=== PATIENT | female | born 1935 | race Caucasian/White ===

== ENCOUNTER 2024-07-03 08:00 | Day surgery (SDC) | payer MEDICARE, OTHER ==
[2024-07-01 13:38] VITALS: BP 108/70
[~2024-07-03] VITALS: Ht 170.2 cm; Wt 58.6 kg
[~2024-07-03 08:00] MED LIST: ASPIRIN81 MG PO; CEFAZOLIN SODIUM 2 GM/20 ML SYR IV SCH; CEPHALEXIN500 MG PO; IBLOOD GLUCOSE TEST STRIP 1 EA TEST VI PRN; K-TAB ER20 MEQ PO; LACTATED RINGER'S 1,000 ML IV SCH; LEVOTHYROXINE75 MCG PO; LIDOCAINE HCL 1% 5 ML SDV INJ ONE; LIPITOR10 MG; MIDAZOLAM HCL 5 MG/5 ML VIAL IV PRN; MIRTAZAPINE15 MG PO; PAROXETINE HCL10 MG; TRAMADOL HCL50 MG PO; TRIAMTERENE-HC1 EAC1 PO; TYLENOL EXTRA500 MG PO; ULTRAM50 MG PO; ZILRETTA32 MG IU; fentaNYL citrate 100 MCG/2 ML VIAL IV PRN
[2024-07-03 08:13] VITALS: BP 143/60
[2024-07-03] MEDS ORDERED: propofoL 200 MG/20 ML VIAL ONE (08:51)
[2024-07-03] MEDS ORDERED: LIDOCAINE HCL 2% 5 ML SDV ONE (08:51)
--- NOTE | 2024-07-03 09:47 | NUR ---
07/03/24 0947 Tahira Leslie 0941-PATIENT ARRIVED TO PACU DROWSY ON RA RR EVEN. PATIENT LAYING LEFT LATERAL REPORTS "IT HURTS" ABDOMEN SOFT. IVF INFUSING. PATIENT REPOSITIONS SELF TO BACK.ORIENTED TO PACU. 0944-PATIENT DENIES PAIN OR NAUSEA. RA 98% RR EVEN. ENCOURAGED TO PASS GAS.
[2024-07-03 10:09] VITALS: BP 154/72
--- NOTE | 2024-07-03 13:01 | OR ---
[facility] [address], [place] [address] Signed DATE OF OPERATION: 07/03/2024 SURGEON: Malinda Nogueira MD PREOPERATIVE DIAGNOSES: 1. Rectal bleeding followed by melena while on Plavix. 2. Diverticulosis. 3. Personal history of colonic polyps in 2013 and 2019 at the ages of 77 and 83. POSTOPERATIVE DIAGNOSES: 1. Minimal diffuse gastritis. 2. Long redundant colon. 3. Tortuous sigmoid colon. 4. Moderate diverticulosis. 5. Moderate internal hemorrhoids. PROCEDURES: 1. EGD with CLOtest and biopsies of the antrum. 2. Colonoscopy without biopsy. ESTIMATED BLOOD LOSS: None. INDICATIONS: Skyler is an 88-year-old female, asked to see me for both upper and lower endoscopy. 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 She also continues to smoke. She is describing some bright red blood with a bowel movement over a month ago and then for a couple of days, she had black stool. She said now it is all gone. She had a colonoscopy in 2013 at the age of 77 while living in [place], [place]. She is quite confident they removed 13 polyps. She also had upper and lower endoscopy in 2019 at the age of 83 [address] Obed Gutierres in [place], [place]. That practice is now closed. She had a tubular adenomatous polyp removed. We do not have any of the records for the upper endoscopy. Skyler tells me there is no family history of colon cancer or polyps. She does not seem to have any upper or lower GI complaints currently. In the office, I gave her a pamphlet on upper and lower endoscopy. We reviewed the nature of the two tests. There is risk including, but not limited to gas bloating, crampy abdominal pain, bleeding, perforation requiring surgery, and missed diagnosis. We also reviewed the written instructions for a bowel prep line by line. We had her hold the Plavix 5 days prior to the procedure. Also because of her advanced age along with her continued smoking and her medical history including the COPD Electronically Signed By: MALINDA NOGUEIRA MD 07/03/24 1301 PATIENT NAME: SKYLER SALGADO OPERATIVE REPORT DATE OF : 39 REPORT #: [id number] PHYSICIAN: MALINDA NOGUEIRA MD PCP: LINDA LE MD REPORT IS CONFIDENTIAL AND NOT TO BE RELEASED WITHOUT AUTHORIZATION [facility] [address], [place] [address] Signed along with the sleep apnea and a head injury with a pelvic fracture back in December 2023, we asked for monitored anesthesia care with propofol infusion. That proved to be a jenkins decision. She did require preoperative blood work and an EKG. She understands an adult person has to take her home afterwards. She had expressed understanding and wished to proceed. DESCRIPTION OF PROCEDURE: Skyler was taken into our endoscopy suite and placed in the supine semi-recumbent position. A bite block was utilized for the case. She was given monitored anesthesia care with propofol infusion per our nurse gantry rigger. The adult gastroscope was introduced and advanced under direct visualization of the camera without difficulty. She had received antibiotics because of her joint replacements. We looked at her vocal cords and they were unremarkable. We did not see either vocal cord move while we were watching. 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 The duodenum and pyloric channel were unremarkable. Stomach had very mild diffuse erythematous changes quite common for people who smoke. There were no ulcerations. We took a biopsy out of the antrum for CLOtest as well as pathologic review. Upon retroflexion of the scope, we could not appreciate a hiatal hernia. The scope was withdrawn up through the area of the GE junction, which was compliant without stricture. There was no gastric or esophageal varices. There was no disruption to her Z-line. There was no Barnes's mucosa. There was no distal esophagitis. The middle and upper esophagus were unremarkable. After this, the gas was suctioned out and the gastroscope removed. Skyler tolerated her upper endoscopy quite well. Skyler was rotated into the left lateral decubitus position. She was maintained on propofol infusion per our nurse gantry rigger. A digital rectal exam was performed. She has good sphincter tone. There were no external hemorrhoids. There were no masses. The adult colonoscope was introduced and advanced very carefully and slowly up through her very tortuous sigmoid colon. It opened up nicely once we got in the left colon. It took a little extra propofol and some abdominal compression to get over into the cecum itself. We found that she has a fairly long redundant colon. Thankfully, her prep was good. We could easily see the appendiceal orifice and the ileocecal valve. The scope was then slowly withdrawn. We found the diverticula in the left side of her colon. They were moderate in size, moderate in number and scattered about. We came back down through the very tortuous sigmoid colon. The rectum itself was unremarkable. Upon retroflexion of the scope, she does have moderate internal hemorrhoid columns. After this, the gas was suctioned out and the colonoscope removed. Skyler tolerated the colonoscopy quite well. RECOMMENDATIONS: I will see Skyler back in my office in 7 to 14 days to review her biopsy results. She would always need monitored anesthesia care in the future. She will resume her Plavix Electronically Signed By: MALINDA NOGUEIRA MD 07/03/24 1301 PATIENT NAME: SKYLER SALGADO OPERATIVE REPORT DATE OF : 39 REPORT #: [id number] PHYSICIAN: MALINDA NOGUEIRA MD PCP: LINDA LE MD REPORT IS CONFIDENTIAL AND NOT TO BE RELEASED WITHOUT AUTHORIZATION [facility] [address], [place] [address] Signed in one week. MD HOMERO Pulliam/MODL /[id number] cc: MD Linda Pulliam MD Copies: MALINDA NOGUEIRA MD ~ Electronically Signed By: MALINDA NOGUEIRA MD 07/03/24 1301 PATIENT NAME: SKYLER SALGADO OPERATIVE REPORT DATE OF : 39 REPORT #: [id number] PHYSICIAN: MALINDA NOGUEIRA MD PCP: LINDA LE MD REPORT IS CONFIDENTIAL AND NOT TO BE RELEASED WITHOUT AUTHORIZATION
--- NOTE | 2024-07-04 14:58 | PATH ---
[facility] [address] [facility] [place], [place] [address] Signed SPECIMEN(S): A ANTRUM BIOPSY SPECIMEN SOURCE: A. ANTRUM BIOPSY v CLINICAL HISTORY: History of melena, mild gastritis FINAL PATHOLOGIC DIAGNOSIS: Stomach, antrum, biopsy: - Gastric antral mucosa with reactive gastropathy - Negative for Helicobacter pylori with HE stains BRP MICROSCOPIC EXAMINATION: Histologic sections of all submitted blocks are examined by light microscopy. These findings, together with the gross examination, support the pathologic diagnosis. GROSS DESCRIPTION: The specimen, labeled and designated "mae Simonrum biopsy," is received in formalin and consists of one song soft tissue fragment, 0.4 cm. Entirely submitted in (A1). VB (under the direct supervision of a pathologist) The Gross Description was prepared using a voice recognition system. The report was reviewed for accuracy; however, sound-alike word errors, addition and/or deletions may occur. If there is any question about this report, please contact Client Services. ADDITIONAL NOTES: Immunohistochemical and/or in situ hybridization studies if performed in this case included appropriate positive controls that reacted as expected. This test was developed and its performance characteristics determined by [facility]. It has not been cleared or approved by the U.S. Food and Drug Administration. The FDA has determined that such clearance or approval is not necessary. This test is used for clinical purposes. It should not be regarded as investigational or for research. [facility] is certified under the Clinical Laboratory Improvement Amendments of 1988 (CLIA) as qualified to perform high complexity clinical PATIENT NAME: SKYLER SIMON PATHOLOGY DATE OF : 39 REPORT #: [id number] PHYSICIAN: ROBIN BURGESS PCP: CARINE LE MD REPORT IS CONFIDENTIAL AND NOT TO BE RELEASED WITHOUT AUTHORIZATION [address] [place], [place] [address] Signed laboratory testing. PERFORMING LABORATORY: Technical [place] [address] (CLIA# [id number]). Professional interpretation was performed by [facility], [address] [place] [address] (CLIA#: [id number]). Diagnostician: Ronnie Tidwell MD Pathologist Electronically Signed 07/04/2024 Copies: ~ PATIENT NAME: SKYLER SIMON PATHOLOGY DATE OF : 39 REPORT #: [id number] PHYSICIAN: ROBIN BURGESS PCP: CARINE LE MD REPORT IS CONFIDENTIAL AND NOT TO BE RELEASED WITHOUT AUTHORIZATION
== END 2024-07-03 10:20 | disposition home or self-care (01) ==
LOC: DS 08:00
PROVIDERS: ATTEND Colon & Rectal Surgery
PROC: 0DB68ZX Excision of Stomach, Via Natural or Artificial Opening Endoscopic, Diagnostic (ICD-10-PCS; principal; 2024-07-03 08:50)
PROC: 0DJD8ZZ Inspection of Lower Intestinal Tract, Via Natural or Artificial Opening Endoscopic (ICD-10-PCS; 2024-07-03 08:50)
DX: K29.70 Gastritis, unspecified, without bleeding (principal); K62.5 Hemorrhage of anus and rectum; K63.89 Other specified diseases of intestine; K57.30 Diverticulosis of large intestine without perforation or abscess without bleeding; K64.8 Other hemorrhoids; J44.9 Chronic obstructive pulmonary disease, unspecified; E03.9 Hypothyroidism, unspecified; E78.2 Mixed hyperlipidemia; G47.33 Obstructive sleep apnea (adult) (pediatric); I12.9 Hypertensive chronic kidney disease with stage 1 through stage 4 chronic kidney disease, or unspecified chronic kidney disease; N18.32 Chronic kidney disease, stage 3b; Z99.89 Dependence on other enabling machines and devices; Z88.1 Allergy status to other antibiotic agents; Z88.2 Allergy status to sulfonamides; Z88.8 Allergy status to other drugs, medicaments and biological substances; Z86.0100 Personal history of colon polyps, unspecified
CPT/HCPCS: 00813; 36415; 87077; 88305; J0690; J2003; J2704; J7121

== ENCOUNTER 2025-03-18 08:25 | Emergency (ER) | payer MEDICARE ==
[~2025-03-18] VITALS: Ht 170.2 cm; Wt 56.6 kg
[~2025-03-18 08:25] MED LIST changes: -CEFAZOLIN SODIUM 2 GM/20 ML SYR IV SCH; -IBLOOD GLUCOSE TEST STRIP 1 EA TEST VI PRN; -LACTATED RINGER'S 1,000 ML IV SCH; -LIDOCAINE HCL 1% 5 ML SDV INJ ONE; -MIDAZOLAM HCL 5 MG/5 ML VIAL IV PRN; -fentaNYL citrate 100 MCG/2 ML VIAL IV PRN
[2025-03-18 08:38] LABS: BASOPHILS 0.7 % (0.1-1.2); EOSINOPHILS 1.8 % (0.7-5.8); LYMPHOCYTES 44.5 % (19.3-51.7); MCH 32.8 PG (25.6-32.2); MCHC 34.6 g/dL (32.2-35.5); MCV 95.0 fL (79.4-94.8); MONOCYTES 8.0 % (4.7-12.5); NEUTROPHILS 44.5 % (34.0-71.1); RBC 4.60 M/uL (3.93-5.22)
[2025-03-18] MEDS ORDERED: ACETAMINOPHEN 500 MG TAB PO ONE (09:00)
[2025-03-18 09:01] LABS: ALCOHOL, MEDICAL <3 ng/dL (<3); ALT (SGPT) 29 U/L (14-59); AST (SGOT) 24 U/L (15-37); GLOMERULAR FILTRATION RATE,EST 60 mL/min (>60); PROTEIN, TOTAL 6.6 g/dL (6.4-8.2); UREA NITROGEN 19 mg/dL (7-18)
[2025-03-18 09:22] LABS: ABO A; ANTIBODY SCREEN NEGATIVE; RH POSITIVE
[2025-03-18 10:00] VITALS: BP 159/72
== END 2025-03-18 10:01 | disposition home or self-care (01) ==
LOC: ED 08:25
PROVIDERS: Emergency Medicine
DX: S02.2XXA Fracture of nasal bones, initial encounter for closed fracture (principal); S01.81XA Laceration without foreign body of other part of head, initial encounter; I10 Essential (primary) hypertension; E03.9 Hypothyroidism, unspecified; J44.9 Chronic obstructive pulmonary disease, unspecified; Z88.2 Allergy status to sulfonamides; Z88.0 Allergy status to penicillin; Z88.8 Allergy status to other drugs, medicaments and biological substances; Z79.890 Hormone replacement therapy; Z79.899 Other long term (current) drug therapy; W18.30XA Fall on same level, unspecified, initial encounter
CPT/HCPCS: 36415; 70450; 70486; 71045; 72125; 80053; 80307; 85025; 86850; 86900; 86901; 96374; 99284-25; A9270; G0480; J2405